=== PATIENT | female | born 1955 | race Caucasian/White ===

== ENCOUNTER 2018-09-09 05:24 | Day surgery (SDC) | payer MEDICAID ==
[2018-09-03 12:03] LABS: BASOPHILS # (AUTO) 0.1 X10'3 (0-0.2); BASOPHILS % (AUTO) 1.3 % (0-1); EOSINOPHILS # (AUTO) 0.3 X10'3 (0-0.9); LYMPHOCYTES # (AUTO) 2.8 X10'3 (1.1-4.8); LYMPHOCYTES % (AUTO) 30.4 % (21-51); MEAN CORPUSCULAR HEMOGLOBIN 29.2 PG (27.0-31.0); MEAN CORPUSCULAR HGB CONC 34.1 g/dL (33.0-36.5); MEAN CORPUSCULAR VOLUME 85.8 FL (78-98); MEAN PLATELET VOLUME 7.5 FL (7.4-10.4); MONOCYTES # (AUTO) 0.5 X10'3 (0-0.9); MONOCYTES % (AUTO) 5.2 % (2-12); NEUTROPHILS # (AUTO) 5.6 X10'3 (1.8-7.7); NEUTROPHILS % (AUTO) 60.1 % (42-75); PRE OP HEMATOCRIT 41.6 % (35.0-45.0); PRE OP HEMOGLOBIN 14.2 g/dL (12.0-16.0); PRE OP PLATELET COUNT 354 X10'3 (140-440); RED BLOOD COUNT 4.85 X10'6 (4.20-5.60); RED CELL DISTRIBUTION WIDTH 15.1 % (11.5-14.5)
[2018-09-03 12:17] LABS: ALBUMIN 3.8 G/DL (3.4-5.0); ALKALINE PHOSPHATASE 80 IU/L (46-116); BLOOD UREA NITROGEN 12 MG/DL (7-18); BUN/CREATININE RATIO 15.4 (6.6-38.0); CALCIUM 9.7 MG/DL (8.5-10.1); CHLORIDE 100 MMOL/L (99-107); CREATININE 0.78 MG/DL (0.40-0.90); PRE OP ALT 40 U/L (30-65); PRE OP ANION GAP 6 (8-16); PRE OP AST 24 U/L (10-37); PRE OP BILIRUB, TOTAL 0.2 MG/DL (0.0-1.0); PRE OP GLUCOSE 113 MG/DL (70-104); PRE OP POTASSIUM 4.4 MMOL/L (3.4-5.1); PRE OP SODIUM 139 MMOL/L (135-145); TOTAL CARBON DIOXIDE 32.9 MMOL/L (24-32); TOTAL PROTEIN 7.7 G/DL (6.4-8.2); eGFR 74 ML/MIN
[2018-09-09] VITALS (21 sets, daily range): BP systolic 102–158; BP diastolic 48–87
[~2018-09-09] VITALS: Ht 154.9 cm; Wt 83.5 kg
[~2018-09-09 05:24] MED LIST: ALBU18HF2 INH; ARIP10TA15 PO; BUDE10.22 INH; HYDR-4383 PO; LORA-949 PO; METF500T7 PO; TIOT18CA3 INH; ZOL50T PO; ringers solution, lacted 1,000 ML IV SCH
[2018-09-09] MEDS ORDERED: VANCOMYCIN INJ 1000 MG in NORMAL SALINE 250ml IV.SOLN IV ONE (05:30)
[2018-09-09] MEDS ORDERED: ceFAZolin 2gm in dextrose, iso 100 ML IV ONE (05:30)
[2018-09-09] MEDS ORDERED: famotidine 20mg tablet PO ONE (05:30)
[2018-09-09] MEDS ORDERED: LIDOcaine 1% (10mg/ml) 2ml vial ONE (06:06)
[2018-09-09] MEDS ORDERED: triamcinolone acetonide 40mg/ml inj ONE (06:42)
[2018-09-09] MEDS ORDERED: BUPIVAcaine/PF 2.5mg/ml (0.25%) 10ml vial ONE (06:42)
[2018-09-09] MEDS ORDERED: MIDAZolam 1mg/ml 10ml vial ONE (07:15)
[2018-09-09] MEDS ORDERED: fentaNYL/PF 50MCG/1 ML 2ML syringe ONE (07:15)
[2018-09-09] MEDS ORDERED: ringers solution, lacted 1,000 ML IV SCH (07:22)
[2018-09-09] MEDS ORDERED: ondansetron/PF 4mg/2ml inj IV PRN (07:25)
[2018-09-09] MEDS ORDERED: hydrALAZINE 20mg/ml inj. IV PRN (07:25)
[2018-09-09] MEDS ORDERED: fentaNYL/PF 50MCG/1 ML 2ML syringe IV PRN ×2 (07:25)
[2018-09-09] MEDS ORDERED: morphine 4 MG/ML inj SYRINge IV PRN ×2 (07:25)
[2018-09-09] MEDS ORDERED: labetalol 20mg/4ml (5mg/ml) syringe IV PRN (07:25)
--- NOTE | 2018-09-09 09:15 | NUR ---
Received from OR via , accompanied by Anesthesiologist DR. ROSE and report given by Anesthesiolgist. PATIENT ALOERT AND ORIENTED X4, LUNG SOUNDS WHEEZY, O2 SAT 98% 10L MASK, 20 GAUGE IV TO LEFT FA IVF INFUSING ORDERED, VSS CHARTED, SCD'S IN PLACE, SENSATION NOTED AT PELVIS, WILL CONTINUE TO MONITOR.
--- NOTE | 2018-09-09 10:45 | NUR ---
PATIENT TRANSFERRED TO [facility],WITH ALL PERSONAL BELONGINGS. UNABLE TO AMBULATE AT THIS TIME DUE TO SPINAL. IV TO LEFT FA IN PLACE, SCDS IN PLACE, DRESSING TO LEFT KNEE, CDI. SENSATION NOTED AT BILAT KNEES. VSS CHARTED. REPORT GIVEN TO JORDYN IN [facility].
[2018-09-09] MEDS ORDERED: HYDROcodone/acetaminophen 10/325mg tab PO ONE (12:15)
--- NOTE | 2018-09-09 13:00 | NUR ---
PT HAS MET CRITERIA FOR DISCHARGE, FULL SENSATION WITH SAFE WB'ING ON BILAT LE'S, IV REMOVED, PAIN CONTROLLED WITH PO PAIN MEDICATION. TRANSFERRED TO DAUGHTER'S VEHICLE VIA W'C AND TRANSFER INTO VEHICLE SUPERVISION. ADA SOLIDS AND LIQUIDS. DISCHARGE INSTRUCTIONS REVIEWED AND SENT WITH PT.
== END 2018-09-09 13:00 | disposition home or self-care (01) ==
LOC: PAS 05:24
PROVIDERS: ATTEND Orthopaedic Surgery
DX: S83.282A Other tear of lateral meniscus, current injury, left knee, initial encounter (principal); S83.242A Other tear of medial meniscus, current injury, left knee, initial encounter; E11.51 Type 2 diabetes mellitus with diabetic peripheral angiopathy without gangrene; M22.42 Chondromalacia patellae, left knee; F41.9 Anxiety disorder, unspecified; G89.4 Chronic pain syndrome; E66.01 Morbid (severe) obesity due to excess calories; M17.0 Bilateral primary osteoarthritis of knee; J44.9 Chronic obstructive pulmonary disease, unspecified; E78.5 Hyperlipidemia, unspecified; F32.89 Other specified depressive episodes; F20.1 Disorganized schizophrenia; X58.XXXA Exposure to other specified factors, initial encounter; M22.8X2 Other disorders of patella, left knee; Y93.89 Activity, other specified; Y92.89 Other specified places as the place of occurrence of the external cause; Y99.8 Other external cause status; Z88.2 Allergy status to sulfonamides; Z68.35 Body mass index [BMI] 35.0-35.9, adult
CPT/HCPCS: 29873; 29879; 29880; 36415; 80053; 82948; 85025; 93005; A6449; J0690; J2250; J3010; J3301; J3370; J3490; J7120; A6250; A7000; J7030

== ENCOUNTER 2018-11-15 16:53 | Emergency (ER) | payer MEDICAID ==
[~2018-11-15] VITALS: Ht 154.9 cm; Wt 177.8 kg
[~2018-11-15 16:53] MED LIST changes: -ringers solution, lacted 1,000 ML IV SCH
--- NOTE | 2018-11-15 17:15 | NUR ---
HAD SURGERY ON SEPTEMBER 09, 2018 ON LEFT KNEE, FOR MENINCUS TEAR, HAVING INCREASED PAIN PAST 3 DAYS
[2018-11-15] MEDS ORDERED: traMADol 50MG tablet PO ONE (17:25)
[2018-11-15] MEDS ORDERED: acetaminophen w/codeine (30MG) #3 tablet PO ONE (17:50)
[2018-11-15] MEDS ORDERED: ACET-3067 PO (18:27)
[2018-11-15 18:34] VITALS: BP 138/80
== END 2018-11-15 18:36 | disposition home or self-care (01) ==
LOC: ER 16:54
DX: M25.562 Pain in left knee (principal); J44.9 Chronic obstructive pulmonary disease, unspecified; G89.29 Other chronic pain; Z90.49 Acquired absence of other specified parts of digestive tract; Z98.890 Other specified postprocedural states; Z88.2 Allergy status to sulfonamides; Z88.6 Allergy status to analgesic agent; Z88.8 Allergy status to other drugs, medicaments and biological substances; Z79.84 Long term (current) use of oral hypoglycemic drugs; Z79.899 Other long term (current) drug therapy
CPT/HCPCS: 73564; 99283

== ENCOUNTER 2019-03-14 14:28 | Outpatient (CLI) | payer MEDICARE, MEDICAID ==
[~2019-03-14 14:28] MED LIST changes: +METF500T20 PO; -METF500T7 PO; +SERT-153 PO; -ZOL50T PO
== END 2019-03-14 23:59 | disposition home or self-care (01) ==
LOC: VAS 14:28
PROVIDERS: ATTEND Orthopaedic Surgery
DX: S83.272D Complex tear of lateral meniscus, current injury, left knee, subsequent encounter (principal); R60.0 Localized edema; J44.9 Chronic obstructive pulmonary disease, unspecified; F17.200 Nicotine dependence, unspecified, uncomplicated; Z96.652 Presence of left artificial knee joint; X58.XXXD Exposure to other specified factors, subsequent encounter
CPT/HCPCS: 93971

== ENCOUNTER 2019-05-16 11:31 | Emergency (ER) | payer MEDICARE, MEDICAID ==
[~2019-05-16] VITALS: Ht 154.9 cm; Wt 77.0 kg
[2019-05-16 12:09] VITALS: BP 122/65
[2019-05-16] MEDS ORDERED: HYDR-4353 PO (15:50)
== END 2019-05-16 17:10 | disposition home or self-care (01) ==
LOC: ER 11:31
DX: S76.112A Strain of left quadriceps muscle, fascia and tendon, initial encounter (principal); J44.9 Chronic obstructive pulmonary disease, unspecified; G89.29 Other chronic pain; F32.9 Major depressive disorder, single episode, unspecified; Z88.2 Allergy status to sulfonamides; Z88.6 Allergy status to analgesic agent; Z79.899 Other long term (current) drug therapy; Z90.49 Acquired absence of other specified parts of digestive tract; Z98.890 Other specified postprocedural states; Z96.652 Presence of left artificial knee joint; X58.XXXA Exposure to other specified factors, initial encounter; Y93.89 Activity, other specified; Y92.89 Other specified places as the place of occurrence of the external cause; Y83.8 Other surgical procedures as the cause of abnormal reaction of the patient, or of later complication, without mention of misadventure at the time of the procedure; Y82.8 Other medical devices associated with adverse incidents; Y99.8 Other external cause status
CPT/HCPCS: 29505; 73564; 73700; 99284